=== PATIENT | male | born 1940 | race Caucasian/White ===

== ENCOUNTER 2018-07-13 05:17 | Inpatient (IN) | payer MEDICARE, MEDICAID ==
[~2018-07-13 05:17] MED LIST: CEFAZOLIN 2 GM/D5W RTU 2 GM/50 ML RTUPB IV ONE; CEFAZOLIN 2 GM/D5W RTU 2 GM/50 ML RTUPB IV PRN
[2018-07-13 06:02] LABS: ABSOLUTE BASOPHILS # (AUTO) 0.1 10^3/uL (0.0-0.2); ABSOLUTE EOSINOPHILS # (AUTO) 0.2 10^3/uL (0.0-0.6); ABSOLUTE LYMPHOCYTES (AUTO) 1.5 10^3/uL (0.5-4.7); ABSOLUTE MONOCYTES (AUTO) 1.1 10^3/uL (0.1-1.4); ABSOLUTE NEUT (AUTO) 4.9 10^3/uL (1.7-8.2); BASOPHILS % (AUTO) 0.8 % (0-2); EOSINOPHILS % (AUTO) 2.1 % (0-6); HEMATOCRIT 39.8 % (37.9-51.0); HEMOGLOBIN 13.6 g/dL (13.5-17.0); LYMPHOCYTES % (AUTO) 19.6 % (13-45); MEAN CORPUSCULAR HEMOGLOBIN 32.8 pg (27.0-33.4); MEAN CORPUSCULAR HGB CONC 34.1 g/dL (32.0-36.0); MEAN CORPUSCULAR VOLUME 96 fl (80-97); MONOCYTES % (AUTO) 14.6 % (3-13); PLATELET COUNT 212 10^3/uL (150-450); RED BLOOD COUNT 4.13 10^6/uL (4.35-5.55); RED CELL DISTRIBUTION WIDTH 13.2 % (11.5-14.0); SEGMENTED NEUTROPHILS % (AUTO) 62.9 % (42-78); TOTAL CELLS COUNTED % (AUTO) 100 %; WHITE BLOOD COUNT 7.8 10^3/uL (4.0-10.5)
--- NOTE | 2018-07-13 06:03 | RADIOLOGY REPORT (SQ) ---
CLINICAL HISTORY: preop COMPARISON: None. TECHNIQUE: XR CHEST 1 VIEW 07/13/2018 5:33 AM LAB SCIENTIST FINDINGS: Cardiac silhouette is normal in size. Lungs are clear without consolidation, atelectasis, mass or edema. There is no pleural effusion. There is no pneumothorax. There are no acute osseous findings. IMPRESSION: Clear lungs.
[2018-07-13 06:20] LABS: ANION GAP 9 (5-19); BLOOD UREA NITROGEN 44 mg/dL (7-20); CALCIUM 9.3 mg/dL (8.4-10.2); CARBON DIOXIDE 21 mmol/L (22-30); CHLORIDE 110 mmol/L (98-107); GLUCOSE 91 mg/dL (75-110); POTASSIUM 4.8 mmol/L (3.6-5.0); SODIUM 139.9 mmol/L (137-145)
[2018-07-13] MEDS ORDERED: MIDAZOLAM 2 MG/2 ML INJ ONE (07:03)
[2018-07-13] MEDS ORDERED: FENTANYL CITRATE INJ/PF 100 MCG/2 ML AMPUL ONE (07:03)
[2018-07-13] MEDS ORDERED: PROPOFOL INJ 200 MG/20 ML VIAL IV ONE ×2 (07:03→08:35)
[2018-07-13] MEDS ORDERED: BUPIVACAINE HCL/DEX-WATER/PF 15 MG/2 ML AMPULE ONE (07:04)
[2018-07-13] MEDS ORDERED: BUPIVACAINE HCL 0.5 % INJ/PF 30 ML SDV ONE (07:05)
--- NOTE | 2018-07-13 07:33 | EKG REPORT ---
SEVERITY:- OTHERWISE NORMAL ECG - SINUS RHYTHM BORDERLINE LEFT AXIS DEVIATION : Confirmed by: Nubia Ray MD 13-Jul-2018 07:32:14
[2018-07-13] MEDS ORDERED: MEPERIDINE HCL/PF INJ 25 MG/1 ML DISP.SYRIN IV PRN (07:34)
[2018-07-13] MEDS ORDERED: DIPHENHYDRAMINE HCL 50 MG/ML VIAL IV PRN (07:34)
[2018-07-13] MEDS ORDERED: FENTANYL CITRATE INJ/PF 100 MCG/2 ML AMPUL IV PRN ×3 (07:34)
[2018-07-13] MEDS ORDERED: PROMETHAZINE HCL INJ 25 MG/1 ML VIAL IV PRN ×2 (07:34)
--- NOTE | 2018-07-13 09:13 | Operative Report ---
Operative Report DATE OF SURGERY: 07/13/18 PREOPERATIVE DIAGNOSIS: Posttraumatic right ankle arthrosis OPERATION: Right ankle arthrodesis. Hardware removal SURGEON: SUSANA RODRÍGUEZ ANESTHESIA: Spinal TISSUE REMOVED OR ALTERED: Bone removed was used as morselized bone graft ESTIMATED BLOOD LOSS: 50 PROCEDURE: With the patient supine and operative table the right lower extremity prepped and draped in sterile fashion. Limb was elevated for exsanguination tourniquet inflated 280 torr. Longitudinal incisions made over the anterior tibialis tendon and the tendon sheath is used as a surgical approach to the underlying tibiotalar joint to avoid any damage to the neurovascular structure laterally. The under joint line joint is visualized and soft tissues lifted anterior and posterior leaf for exposure. There is a 6.5 stainless steel screw in the anterior aspect of the tibia which was removed uneventfully. A lamina chief order dispatcher was placed to distract the joint. An oscillating saw was then used to remove the articular surface of both the distal tibia and the proximal talus. That bone is taken and morcellized and used for later bone graft use. An Arthrex anterior tibiotalar arthrodesis plate is then applied to the anterior surface. It secured with 4 screws distally 3 of which are locked. Hardware placement, tibiotalar alignment, and joint reduction are evaluated fluoroscopically. Intention is for the foot to be neutral and not either dorsiflex or plantarflex. Hindfoot is in neutral. A single proximal screw was placed eccentrically to allow further compression across the tibiotalar joint. A lag screw was now placed anteriorly across the distal tibia and into the underlying talus. The remainder of the tibial screws are are placed uneventfully. The construct is again checked fluoroscopically and felt to be adequate. The tourniquet is deflated. Hemostasis obtained with electrocautery. The wound was irrigated with bulb lavage. Anterior tibialis tendon sheath is reconstructed with interrupted Vicryl. Subcutaneous tissues reapproximated using Vicryl. Skin is reapproximated using nylon. A sterile compressive dressing and posterior plaster splint were applied. The patient's return to PACU in satisfactory condition.
[2018-07-13] MEDS ORDERED: TRANEXAMIC ACID INJ/PF 1,000 MG/10 ML SDV IV ONE (09:20)
[2018-07-13] MEDS ORDERED: ONDANSETRON 4 MG TAB.RAPDIS PO PRN (09:34)
--- NOTE | 2018-07-13 09:34 | RADIOLOGY REPORT (SQ) ---
EXAM DESCRIPTION: ANKLE RIGHT AP/LATERAL; NO CHG FLUORO COMPLETED DATE/TIME: 07/13/2018 9:21 am REASON FOR STUDY: RT ANKLE ARHTRODESIS ASST WITH FLUORO IN OR M19.079 PRIMARY OSTEOARTHRITIS, UNSPE CIFIED ANKLE AND FOOT Z79.899 OTHER PRISON (CURRENT) DRUG THERAPY COMPARISON: None. FLUOROSCOPY TIME: 0.4 minutes Spot images saved to PACS. TECHNIQUE: Intra-operative images acquired during surgical procedure to evaluate progress. NUMBER OF IMAGES: 4 LIMITATIONS: None. FINDINGS: Fluoroscopy was provided for intraoperative procedure. Please refer to the operative repo rt for further discussion. IMPRESSION: IMAGE(S) OBTAINED DURING PROCEDURE. COMMENT: Quality ID 145: Final reports for procedures using fluoroscopy that document radiation exp osure indices, or exposure time and number of fluorographic images (if radiation exposure indices are not available) Please consult full operative report of the attending physician for description of the procedure. TECHNICAL DOCUMENTATION: JOB ID: [id number] [employer]- All Rights Reserved Reading location - IP/workstation name: [email or web address]
--- NOTE | 2018-07-13 09:34 | RADIOLOGY REPORT (SQ) ---
EXAM DESCRIPTION: ANKLE RIGHT AP/LATERAL; NO CHG FLUORO COMPLETED DATE/TIME: 07/13/2018 9:21 am REASON FOR STUDY: RT ANKLE ARHTRODESIS ASST WITH FLUORO IN OR M19.079 PRIMARY OSTEOARTHRITIS, UNSPE CIFIED ANKLE AND FOOT Z79.899 OTHER INTERMEDIATE (CURRENT) DRUG THERAPY COMPARISON: None. FLUOROSCOPY TIME: 0.4 minutes Spot images saved to PACS. TECHNIQUE: Intra-operative images acquired during surgical procedure to evaluate progress. NUMBER OF IMAGES: 4 LIMITATIONS: None. FINDINGS: Fluoroscopy was provided for intraoperative procedure. Please refer to the operative repo rt for further discussion. IMPRESSION: IMAGE(S) OBTAINED DURING PROCEDURE. COMMENT: Quality ID 145: Final reports for procedures using fluoroscopy that document radiation exp osure indices, or exposure time and number of fluorographic images (if radiation exposure indices are not available) Please consult full operative report of the attending physician for description of the procedure. TECHNICAL DOCUMENTATION: JOB ID: [id number] [employer]- All Rights Reserved Reading location - IP/workstation name: [email or web address]
[2018-07-13] MEDS ORDERED: (PENDING PHARMACY ID) (Zolpidem Tartrate [Ambien] 10 MG) PO PRN (09:44)
[2018-07-13] MEDS ORDERED: LISINOPRIL 5 MG TABLET PO SCH (10:00)
[2018-07-13] MEDS ORDERED: PREGABALIN 50 MG CAPSULE PO SCH (11:00)
[2018-07-13] MEDS: RINGERS SOLUTION,LACTATED 1,000 ML IV PRN ×2 (12:00→18:07)
[2018-07-13] MEDS: OXYCODONE HCL IR 5 MG TABLET PO PRN ×2 (12:08→18:09)
[2018-07-13] MEDS: ASPIRIN 81 MG TABLET, ENT COATED PO SCH (12:08)
[2018-07-13] MEDS: MORPHINE SULFATE 10 MG/ML INJ IV PRN ×3 (13:05→21:45)
[2018-07-13] MEDS: CEFAZOLIN SODIUM 2 GM in DEXTROSE 5%-WATER 100 ML IV SCH ×2 (13:14→22:35)
[2018-07-13] MEDS: ZOLPIDEM TARTRATE 5 MG TABLET PO PRN (23:35)
[2018-07-14] MEDS: LANSOPRAZOLE 15 MG TAB.RAP.DR PO SCH (05:39)
[2018-07-14] MEDS: RINGERS SOLUTION,LACTATED 1,000 ML IV PRN (05:40)
[2018-07-14] MEDS: OXYCODONE HCL IR 5 MG TABLET PO PRN (05:40)
[2018-07-14] MEDS ORDERED: MORPHINE SULFATE 10 MG/ML INJ IV PRN (06:52)
--- NOTE | 2018-07-14 07:12 | PDOC PROGRESS REPORT ---
Subjective Progress Note for:: 07/14/18 Reason For Visit: M19.079 PRIMARY OSTEOARTHRITIS, UNSPECIFIED ANKLE 78-year-old white male postop day 1 status post arthrodesis right ankle joint. Patient with limited progress with physical therapy yesterday. Complains of ongoing pain overnight. Physical Exam Vital Signs: Temp Pulse Resp BP Pulse Ox 36.9 C 91 20 153/75 H 95 07/14/18 00:45 07/14/18 00:45 07/13/18 19:40 07/14/18 00:45 07/14/18 00:45 Intake & Output 07/13/18 07/14/18 07/15/18 06:59 06:59 06:59 Intake Total 0 4998 Output Total 1725 Balance 0 3273 Weight 87.54 kg 91.9 kg General appearance: PRESENT: no acute distress, mild distress Head exam: PRESENT: normocephalic Respiratory exam: PRESENT: unlabored Cardiovascular exam: PRESENT: RRR Vascular exam: PRESENT: normal capillary refill GI/Abdominal exam: PRESENT: soft Rectal exam: PRESENT: deferred Extremities exam: PRESENT: other - Right lower extremity posterior splint in place. There is been drainage through the dressing and this is subsequently been reinforced. There is brisk capillary refill to the digits. Neurological exam: PRESENT: alert, awake, oriented to person, oriented to place, oriented to time, oriented to situation. ABSENT: motor sensory deficit Skin exam: PRESENT: dry, intact, warm. ABSENT: cyanosis, rash Results Laboratory Results: 07/13/18 05:55 07/13/18 05:55 Impressions: Ankle X-Ray 07/13/18 00:00 IMPRESSION: IMAGE(S) OBTAINED DURING PROCEDURE. Fluoroscopy 07/13/18 00:00 IMPRESSION: IMAGE(S) OBTAINED DURING PROCEDURE. Chest X-Ray 07/13/18 05:33 IMPRESSION: Clear lungs. Status: Imported from PACS Assessment & Plan - Diagnosis (1) Ankle arthritis Is this a current diagnosis for this admission?: Yes Plan: Patient status post open arthrodesis now mobilizing with physical therapy and restricted weightbearing basis on his right lower extremity. Social situation at home is that the patient lives alone and physical therapy is subsequent recommended fpc facility placement. Social work has been asked to become involved to facilitate fpc facility placement. Patient d esires placement at [facility] if possible. - Time Time Spent with patient: 15-24 minutes Anticipated discharge: SNF Within: when bed available
[2018-07-14] MEDS: OXYCODONE HCL SR 10 MG TABLET PO SCH ×2 (09:46→21:19)
[2018-07-14] MEDS: ASPIRIN 81 MG TABLET, ENT COATED PO SCH (09:48)
[2018-07-14] MEDS: PREGABALIN 50 MG CAPSULE PO SCH (09:48)
[2018-07-14] MEDS: TAMSULOSIN HCL 0.4 MG CAP.SR.24H PO SCH (09:48)
[2018-07-14] MEDS: LISINOPRIL 5 MG TABLET PO SCH (09:48)
[2018-07-14] MEDS: ZOLPIDEM TARTRATE 5 MG TABLET PO PRN (21:31)
[2018-07-15] MEDS: LANSOPRAZOLE 15 MG TAB.RAP.DR PO SCH (05:17)
[2018-07-15] MEDS: OXYCODONE HCL SR 10 MG TABLET PO SCH ×2 (09:39→22:37)
[2018-07-15] MEDS: TAMSULOSIN HCL 0.4 MG CAP.SR.24H PO SCH (09:41)
[2018-07-15] MEDS: PREGABALIN 50 MG CAPSULE PO SCH (09:41)
[2018-07-15] MEDS: ASPIRIN 81 MG TABLET, ENT COATED PO SCH (09:41)
[2018-07-15] MEDS: LISINOPRIL 5 MG TABLET PO SCH (09:41)
[2018-07-15] MEDS: ZOLPIDEM TARTRATE 5 MG TABLET PO PRN (22:43)
[2018-07-16] MEDS: LANSOPRAZOLE 15 MG TAB.RAP.DR PO SCH (06:59)
[2018-07-16] MEDS: OXYCODONE HCL SR 10 MG TABLET PO SCH ×2 (09:40→22:51)
[2018-07-16] MEDS: PREGABALIN 50 MG CAPSULE PO SCH (09:40)
[2018-07-16] MEDS: LISINOPRIL 5 MG TABLET PO SCH (09:40)
[2018-07-16] MEDS: TAMSULOSIN HCL 0.4 MG CAP.SR.24H PO SCH (09:40)
[2018-07-16] MEDS: ASPIRIN 81 MG TABLET, ENT COATED PO SCH (09:40)
--- NOTE | 2018-07-16 17:17 | PDOC PROGRESS REPORT ---
Subjective Progress Note for:: 07/16/18 Subjective:: Patient resting comfortably in bed. No issues overnight. Awaiting rehab placement Reason For Visit: PRIMARY OSTEOARTHRITIS Physical Exam Vital Signs: Temp Pulse Resp BP Pulse Ox 36.8 C 87 16 153/81 H 96 07/16/18 12:47 07/16/18 12:47 07/16/18 12:47 07/16/18 12:47 07/16/18 12:47 Intake & Output 07/15/18 07/16/18 07/17/18 06:59 06:59 06:59 Intake Total 2038 536 Output Total 1800 2125 Balance 238 -1589 Weight 89.9 kg 91.3 kg Adult Front & Back Image: 1 - Right lower extremity splint in dressing are dry clean intact with reinforcement anteriorly. Distally he has good sensation to light touch with adequate capillary refill. Results Laboratory Results: 07/13/18 05:55 07/13/18 05:55 Impressions: Ankle X-Ray 07/13/18 00:00 IMPRESSION: IMAGE(S) OBTAINED DURING PROCEDURE. Fluoroscopy 07/13/18 00:00 IMPRESSION: IMAGE(S) OBTAINED DURING PROCEDURE. Chest X-Ray 07/13/18 05:33 IMPRESSION: Clear lungs. Assessment & Plan - Plan Summary Plan Summary: 78-year-old gentleman status post arthrodesis of the right ankle. Continue pain control and decrease Ambien to 5 mg. Awaiting placement to rehab to continue physical therapy in the meantime.
[2018-07-16] MEDS: ZOLPIDEM TARTRATE 5 MG TABLET PO PRN (22:51)
[2018-07-17] MEDS: LANSOPRAZOLE 15 MG TAB.RAP.DR PO SCH (06:52)
[2018-07-17] MEDS: ASPIRIN 81 MG TABLET, ENT COATED PO SCH (10:37)
[2018-07-17] MEDS: PREGABALIN 50 MG CAPSULE PO SCH (10:37)
[2018-07-17] MEDS: OXYCODONE HCL SR 10 MG TABLET PO SCH ×2 (10:37→21:02)
[2018-07-17] MEDS: LISINOPRIL 5 MG TABLET PO SCH (10:38)
[2018-07-17] MEDS: TAMSULOSIN HCL 0.4 MG CAP.SR.24H PO SCH (10:38)
--- NOTE | 2018-07-17 12:58 | PDOC PROGRESS REPORT ---
Subjective Progress Note for:: 07/17/18 Subjective:: Patient only complaint is of its irritation of the right eye. Pain of the right lower extremity is doing well. Awaiting rehab placement Reason For Visit: PRIMARY OSTEOARTHRITIS Physical Exam Vital Signs: Temp Pulse Resp BP Pulse Ox 36.6 C 70 20 107/66 90 L 07/17/18 11:55 07/17/18 11:55 07/17/18 11:55 07/17/18 11:55 07/17/18 11:55 Intake & Output 07/16/18 07/17/18 07/18/18 06:59 06:59 06:59 Intake Total 536 654 Output Total 2125 2030 Balance -1589 -1376 Weight 91.3 kg 89.9 kg Adult Front & Back Image: 1 - Reinforced dressing is dry clean and intact. Splint is intact. Sensation to toes and capillary refill is intact. 2 - Patient does have some irritation of the eyelids with minimal injection of the sclera. He does have no blurred vision or double vision and has intact sym metric extraocular muscle movements. Results Laboratory Results: 07/13/18 05:55 07/13/18 05:55 Impressions: Ankle X-Ray 07/13/18 00:00 IMPRESSION: IMAGE(S) OBTAINED DURING PROCEDURE. Fluoroscopy 07/13/18 00:00 IMPRESSION: IMAGE(S) OBTAINED DURING PROCEDURE. Chest X-Ray 07/13/18 05:33 IMPRESSION: Clear lungs. Assessment & Plan - Plan Summary Plan Summary: 78-year-old status post right ankle fusion. Awaiting placement in rehab. Continue nonweightbearing and physical therapy. Pertaining to the right eye irritation will just monitor and if there is any improvement on his own will just observe but if there is any new symptoms or issues we will readdress it tomorrow in the morning
[2018-07-17] MEDS ORDERED: LORAZEPAM INJ 2 MG/1 ML VIAL IV ONE (20:45)
[2018-07-18] MEDS: LANSOPRAZOLE 15 MG TAB.RAP.DR PO SCH (05:10)
[2018-07-18] MEDS: OXYCODONE HCL SR 10 MG TABLET PO SCH ×2 (10:50→22:34)
[2018-07-18] MEDS: LISINOPRIL 5 MG TABLET PO SCH (10:50)
[2018-07-18] MEDS: PREGABALIN 50 MG CAPSULE PO SCH (10:51)
[2018-07-18] MEDS: TAMSULOSIN HCL 0.4 MG CAP.SR.24H PO SCH (10:51)
[2018-07-18] MEDS: ASPIRIN 81 MG TABLET, ENT COATED PO SCH (10:51)
[2018-07-19 00:37] VITALS: BP 142/68
[2018-07-19] MEDS: ZOLPIDEM TARTRATE 5 MG TABLET PO PRN (01:03)
[2018-07-19] MEDS: LANSOPRAZOLE 15 MG TAB.RAP.DR PO SCH (05:31)
--- NOTE | 2018-07-19 07:00 | PDOC TRANSFER SUMMARY ---
General - Admit/Disc Date/PCP Admission Date/Primary Care Provider: 07/15/18 14:33 KARLA SOLORZANO Discharge Date: 07/19/18 - Discharge Diagnosis (1) Ankle arthritis Is this a current diagnosis for this admission?: Yes - Additional Information Home Medications: Lisinopril [Zestril] 2.5 mg PO DAILY 07/12/18 Omeprazole 20 mg PO DAILY 07/12/18 Pregabalin [Lyrica 50 Mg Capsule] 50 mg PO DAILY 07/12/18 Sildenafil Citrate [Viagra] 25 mg PO DAILY 07/12/18 Tamsulosin HCl [Flomax 0.4 mg Cap.sr] 0.4 mg PO DAILY 07/12/18 Zolpidem Tartrate [Ambien] 10 mg PO ASDIR PRN 07/12/18 History of Present Illness Admission Date/PCP: 07/15/18 14:33 KARLA SOLORZANO History of Present Illness: GALA TENA is a 78 year old male Patient is a 78-year-old white male with progressive right ankle pain and functional disability secondary to a posttraumatic arthritis. Patient is admitted for elective right ankle arthrodesis. Hospital Course Hospital Course: Patient is admitted through the operating room where he undergoes uncomplicated right ankle arthrodesis. Is returned to floor in satisfactory condition. Initially there was some issues with pain control but these have subsequently resolved. He has had limited progress with physical therapy on a restricted weightbearing basis. Dressing is taken down on July 18, 2018. Incision is well approximated with sutures. There is no drainage or erythema. A Cam walker is ordered. Physical Exam Vital Signs: Temp Pulse Resp BP Pulse Ox 36.9 C 98 17 142/68 H 93 07/18/18 23:12 07/18/18 23:12 07/18/18 23:12 07/18/18 23:12 07/18/18 23:12 Intake & Output 07/17/18 07/18/18 07/19/18 06:59 06:59 06:59 Intake Total 658 750 810 Output Total 7028 9142 0539 Balance -1376 -500 -265 Weight 89.9 kg 88.3 kg 91.1 kg General appearance: PRESENT: no acute distress Head exam: PRESENT: normocephalic Respiratory exam: PRESENT: unlabored Cardiovascular exam: PRESENT: RRR Pulses: PRESENT: +1 pedal pulses bilateral Vascular exam: PRESENT: normal capillary refill GI/Abdominal exam: PRESENT: soft Rectal exam: PRESENT: deferred Neurological exam: PRESENT: alert, awake, oriented to person, oriented to place, oriented to time, oriented to situation. ABSENT: motor sensory deficit Psychiatric exam: PRESENT: other - ? Confused Skin exam: PRESENT: dry, intact, warm. ABSENT: cyanosis, rash Results Laboratory Results: 07/13/18 05:55 07/13/18 05:55 Impressions: Ankle X-Ray 07/13/18 00:00 IMPRESSION: IMAGE(S) OBTAINED DURING PROCEDURE. Fluoroscopy 07/13/18 00:00 IMPRESSION: IMAGE(S) OBTAINED DURING PROCEDURE. Chest X-Ray 07/13/18 05:33 IMPRESSION: Clear lungs. Status: Imported from PACS Transfer Plan - Disposition Transfer Plan: Patient to be transferred to a residential facility. Ongoing residential to monitor wound and physical therapy for mobilization on a touchdown weightbearing restriction on the right lower extremity. Cam walker to be worn at all times. - Time Spent with Patient Time spent with patient: Less than 30 Minutes Qualifiers - * PATIENT BEING DISCHARGED WITH ANY OF THE FOLLOWING DIAGNOSIS: No VTE patient discharged on overlapping Therapy?: Yes Plan Discharge Plan: Patient to be discharged to residential facility today. Follow-up with Dr. Friedman and [facility] for [facility] in 2 weeks for suture removal. Time Spent: Less than 30 Minutes
[2018-07-19] MEDS: OXYCODONE HCL SR 10 MG TABLET PO SCH (11:29)
[2018-07-19] MEDS: ASPIRIN 81 MG TABLET, ENT COATED PO SCH (11:29)
[2018-07-19] MEDS: TAMSULOSIN HCL 0.4 MG CAP.SR.24H PO SCH (11:30)
[2018-07-19] MEDS: LISINOPRIL 5 MG TABLET PO SCH (11:30)
[2018-07-19] MEDS: PREGABALIN 50 MG CAPSULE PO SCH (11:30)
== END 2018-07-19 14:45 | DRG 494 ==
LOC: OROUT 05:17 → 4S 12:03 → OROUT 07-15 14:33
PROVIDERS: ADMIT Orthopaedic Surgery; ATTEND Orthopaedic Surgery
PROC: 0QBG0ZZ Excision of Right Tibia, Open Approach (ICD-10-PCS; 2018-07-13)
PROC: 0YP90JZ Removal of Synthetic Substitute from Right Lower Extremity, Open Approach (ICD-10-PCS; 2018-07-13)
PROC: 0SGF04Z Fusion of Right Ankle Joint with Internal Fixation Device, Open Approach (ICD-10-PCS; principal; 2018-07-13 07:30)
DX: M19.071 Primary osteoarthritis, right ankle and foot (principal); K21.9 Gastro-esophageal reflux disease without esophagitis; G47.00 Insomnia, unspecified; Z79.899 Other long term (current) drug therapy; Z82.49 Family history of ischemic heart disease and other diseases of the circulatory system
CPT/HCPCS: 01480; 36415; 71045; 80048; 82962; 85025; 93005; 93010; J0690; J2060; J2250; J2270; J2704; J3010; J3490; J7120; L4386